=== PATIENT | male | born 1990 | race Caucasian/White ===

== ENCOUNTER 2021-08-23 18:09 | Emergency (ER) | payer SELFPAY ==
[~2021-08-23] VITALS: Ht 182.9 cm; Wt 91.0 kg
[2021-08-23] MEDS ORDERED: LEVETIRACETAM 500MG TABLET PO ONE (20:00)
[2021-08-23 22:36] VITALS: BP 103/51
== END 2021-08-23 22:36 | disposition home or self-care (01) ==
LOC: ER 18:09
DX: R56.9 Unspecified convulsions (principal)
CPT/HCPCS: 93005; 99283